=== PATIENT | male | born 1990 | race Caucasian/White ===

== ENCOUNTER 2018-12-25 15:01 | Emergency (ER) | payer OTHER ==
[~2018-12-25] VITALS: Ht 175.3 cm; Wt 76.2 kg
[2018-12-25] MEDS ORDERED: WATER ONE (15:05)
[2018-12-25] MEDS ORDERED: BOOSTRIX TDAP IM ONE ×2 (15:08→15:30)
[2018-12-25] MEDS ORDERED: LIDOCAINE 1% VIAL ONE (15:08)
[2018-12-25] MEDS ORDERED: TORADOL IM STA (15:09)
[2018-12-25] MEDS ORDERED: TORADOL ONE (15:09)
[2018-12-25 15:13] VITALS: BP 132/71
--- NOTE | 2018-12-25 15:13 | ER.PDOC ---
General Chief Complaint: Requesting Medical Care Stated Complaint: LEFT HAND INJURY Time seen by MD: 15:12 Source: patient Exam Limitations: no limitations History of Present Illness Initial Comments Laceration to 3 middle fingers with a hand saw Occurred: just prior to arrival Where: home Severity: moderate Context: laceration Location of Injury: (L) hand Allergies: Coded Allergies: No Known Allergies (Unverified , 03/30/16) Past Medical History Medical History: no pertinent history Surgical History: other Review of Systems Constitutional: no symptoms reported EENTM: no symptoms reported Respiratory: no symptoms reported Cardiovascular: no symptoms reported Gastrointestinal: no symptoms reported Skin: see HPI All Other Systems: Reviewed and Negative Physical Exam General Appearance: Alert, No Apparent Distress Hand: see diagram 1 - lac 2 - lac 3 - lac Vascular: no vascular compromise Tendons: tendon function nml Forearm/Elbow/Arm: uninjured above wrist Head/ENT: nml inspection, pharynx nml Neck/Back: nml inspection, non-tender Resp/CVS: no resp distress, lungs clear, heart sounds nml, reg. rate & rhythm Abdomen: non-tender, no organomegaly ED LACERATION WOUND REPAIR # of Wounds/Lacerations Presen: 2 Wound Location & Length (Requi: Left hand Wound Length (cm): 4 Wound cleaned: betadine Anesthesia: 1% Lidocaine Volume Anesthetic (ccs): 10 Wound's Depth, Shape: irregular Irrigated w/ Saline (ccs): 30 Wound Debrided: minimal Wound Repaired With: sutures Suture Size/Type: 4:0, ethilon Suture Style: interupted Number of Sutures: 7 Sterile Dressing Applied?: Yes Results/Orders Results/Orders Orders - KYLIE CARRANZA MD Xr Hand Lt (12/25/18 15:09) Ketorolac Tromethamine (Toradol) (12/25/18 15:09) Diphth,Pertuss(Acell),Tet Vac (Boostrix (12/25/18 15:30) Ketorolac Tromethamine (Toradol) (12/25/18 15:09) Neomycin/Bacitracin/Polymyxinb (Triple A (12/25/18 15:27) Vital Signs Date Time Temp Pulse Resp B/P (MAP) Pulse Ox O2 Delivery O2 Flow Rate FiO2 12/25/18 15:13 98.0 100 20 132/71 (91) 96 Room Air 98.0 12/25/18 15:11 98.0 100 20 96 Room Air 98.0 12/25/18 15:10 98.0 100 18 98.0 Administered Medications Medications (Trade) Dose Ordered Sig/Ryan Route PRN Reason Start Time Stop Time Status Last Admin Dose Admin Ketorolac Tromethamine (Toradol) 60 mg STAT STAT IM 12/25/18 15:09 12/25/18 15:12 DC 12/25/18 15:17 60 MG EKG/XRAY/CT/US XRAY: hand (Normal left hand) Departure Time of Disposition: 15:41 Disposition: 01 HOME, SELF-CARE Impression: Primary Impression: Laceration of hand Condition: Stable Referrals: PCP,UNKNOWN (PCP) PRIMARY CARE PROVIDER Additional Instructions: Clean wounds daily with soap and water and apply Neosporin Keflex Tramadol Remove sutures in 8 days at your PCP or ED Duration or Time Spent with Pa: 60 mins Problem Qualifiers Primary Impression: Laceration of hand Encounter type: initial encounter Foreign body presence: without foreign body Laterality: left Qualified Codes: S61.412A - Laceration without foreign body of left hand, initial encounter KYLIE CARRANZA MD Dec 25, 2018 15:13
--- NOTE | 2018-12-25 15:13 | NUR ---
ARRIVAL PATIENT ARRIVED TO [facility] AMBULATORY WITH FRIEND, C/O OF LEFT HAND INJURY TODAY, PATIENT STATES HE WAS CUTTING A PICKET TO A FENCE WITH A TABLE SAW WHEN HE CUT HIS 1ST,2ND, AND 3RD DIGIT. SMALL LACERATIONS NOTED TO ALL THREE DIGITS. WOUNDS CLEANED WITH APPROX 200CC OF NORMAL SALINE, PATIENT DENIES ANY OTHER INJURY, HERE FOR FURTHER EVAL.
[2018-12-25] MEDS ORDERED: TRIPLE ANTIBIOTIC OINTMENT TP ONE (15:27)
--- NOTE | 2018-12-25 15:27 | DIREP ---
PROCEDURE:XRAY HAND MIN 3 VW-LT COMPARISON:None. INDICATIONS:Laceration to fingers FINDINGS: BONES:Normal. JOINTS:Normal. SOFT TISSUES:Normal. No radiopaque foreign body OTHER:No additional findings. CONCLUSION:Normal examination. Dictated by: Goyo Donohue MD on 12/25/2018 at 03:24 PM
[2018-12-25 15:55] VITALS: BP 132/71
== END 2018-12-25 15:48 | disposition home or self-care (01) ==
LOC: ER 15:01
DX: S61.213A Laceration without foreign body of left middle finger without damage to nail, initial encounter (principal); S61.211A Laceration without foreign body of left index finger without damage to nail, initial encounter; S61.215A Laceration without foreign body of left ring finger without damage to nail, initial encounter; W26.8XXA Contact with other sharp object(s), not elsewhere classified, initial encounter; Y93.89 Activity, other specified; Y92.098 Other place in other non-institutional residence as the place of occurrence of the external cause; Y99.8 Other external cause status
CPT/HCPCS: 12002; 73130; 90471; 90715; 96372; 99283; J1885; J2001